=== PATIENT | female | born 1955 | race Caucasian/White ===

== ENCOUNTER 2021-07-11 10:33 | Emergency (ER) | payer OTHER, SELFPAY ==
--- NOTE | ~2021-07-11 | XR_ITS ---
XR foot LT min 3V 07/11/2021 11:02 Indication: Left foot pain and swelling. Procedure: 4 views left foot Comparison: No prior studies for comparison. Findings: Osteopenia. No acute fracture, subluxation or dislocation. There are degenerative changes o f the first tarsal metatarsal and metatarsal-phalangeal joints. No focal soft tissue abnormality. The re are degenerative calcaneal enthesophytes at the plantar surface. Impression: 1: Mild polyarticular osteoarthritis. Reviewed, dictated and finalized at location A. Impression: 1: Mild polyarticular osteoarthritis.
[2021-07-11 10:48] VITALS: BP 114/60; PULSE 65; RESP 16; TEMP 36.2; O2SAT 100
--- NOTE | 2021-07-11 11:12 | ED.EXTPRO ---
HPI - Extremity Problem General Chief complaint: Extremity Problem,Nontraumatic Stated complaint: Lt Foot Swelling and Pain Time Seen by Provider: 07/11/21 11:12 History of Present Illness HPI Narrative: Chelle Lebron is a 66 yo female with no PMH who comes with mild erythema at the base of metatarsals 2 3 and 4 for the last 9 days. She is worn a pair of sandals 1 day but otherwise wears the same pair of tennis shoes with [id number] orthotics. Has tried diflonac cream to foot, ice, elevation, Related Data Home Medications Medication Instructions Recorded Confirmed calcium carbonate 600 mg calcium 1 tablet PO DAILY 07/11/21 07/11/21 (1,500 mg) tablet (Calcium) levothyroxine 75 mcg tablet 1 tablet PO DAILY 07/11/21 07/11/21 (Synthroid) Allergies Allergy/AdvReac Type Severity Reaction Status Date / Time erythromycin base AdvReac Mild Hives Verified 07/11/21 11:04 Penicillins AdvReac Mild Hives Verified 07/11/21 10:57 pseudoephedrine AdvReac Mild Hives Verified 07/11/21 10:57 [From [facility]] Review of Systems Review of Systems: CONSTITUTIONAL: Denies fever, chills, sweats. EYES: Denies visual changes, redness, discharge. ENT: Denies rhinorrhea, congestion, sore throat, otalgia. CARDIOVASCULAR: Denies chest pain, palpitations, edema. RESPIRATORY: Denies dyspnea, wheezing, cough GASTROINTESTINAL: Denies abdominal pain, nausea, vomiting, diarrhea. GENITOURINARY: Denies dysuria, hematuria, abnormal discharge SKIN: Denies rash or itching. NEUROLOGIC: Denies numbness, or focal weakness. PSYCHIATRIC: Denies anxiety or depression. Left foot mild edema at base of toes 2 3 and 4, tender on top, not on bottom PMFSH Social History Social History (Updated 07/11/21 @ 11:25 by Elizabeth Escobar CNP) Smoking status: Never smoker Exam Narrative: At time of signature, I agree with nursing past medical, surgical, social and family history. There is no relevant family history pertinent to the presenting complaint. GENERAL: This is a well-nourished, well-developed patient, in mild distress. HEAD: normocephalic, atraumatic. EYES: Sclera clear/white. Vision is grossly intact. EARS: External ears normal, . Hearing grossly intact. NOSE: External nose normal without nasal discharge, nares without redness, no rhinorrhea. THROAT: Mucous membranes moist, NECK: Neck supple, non-tender CARDIOVASCULAR: Regular rate and rhythm without murmurs, gallops, or rubs. RESPIRATORY: Clear to auscultation. Breath sounds equal bilaterally. No wheezes, rales, or rhonchi. GASTROINTESTINAL: Abdomen soft, SKIN: warm, intact with no suspicious lesions or rash, good texture and turgor. NEURO: awake, alert, and oriented to person, place and time. There were no obvious focal neurologic abnormalities. Steady gait EXTREMITIES: Normal range of motion. Left foot mild swelling with tenderness, no erythema No induration BACK: Nontender without deformity Course Course Emergency Course: Patient comes in left foot pain and mild swelling at the base of toes 2 3 and 4 no erythema or induration X-ray shows mild polyarticular osteoarthritis, osteopenia, no fracture subluxation or dislocation no soft tissue abnormality Patient asked to change shoes, placed in Mino wrap to take Tylenol arthritis for pain Level of Care: Express Care Visit Vital Signs Vital signs: Vital Signs Temperature 97.2 F L 07/11/21 10:48 Pulse Rate 65 07/11/21 10:48 Respiratory Rate 16 07/11/21 10:48 Blood Pressure 114/60 07/11/21 10:48 Pulse Oximetry 100 07/11/21 10:48 Oxygen Delivery Room Air 07/11/21 10:48 Temperature 97.2 F L 07/11/21 10:48 Pulse Rate 65 07/11/21 10:48 Respiratory Rate 16 07/11/21 10:48 Blood Pressure 114/60 07/11/21 10:48 Pulse Oximetry 100 07/11/21 10:48 Oxygen Delivery Room Air 07/11/21 10:48 MDM - Extremity (Nontraumatic) MDM Narrative Medical decision making narrative: Fracture versus infection versus
== END 2021-07-11 11:36 | disposition home or self-care (01) ==
PROVIDERS: Emergency Provider Nurse Practitioner
DX: S93.602A Unspecified sprain of left foot, initial encounter (principal); T14.90XA Injury, unspecified, initial encounter; E03.9 Hypothyroidism, unspecified
CPT/HCPCS: 73630; 99203; G0463

== ENCOUNTER 2022-06-04 18:02 | Emergency (ER) | payer MEDICARE, OTHER, SELFPAY ==
[2022-06-04 18:25] VITALS: BP 129/68; PULSE 73; RESP 16; TEMP 37.1; O2SAT 97
--- NOTE | 2022-06-04 18:34 | ED.EYEPROB ---
HPI - Eye Problem General Chief complaint: Eye Problems Stated complaint: bilateral eye irritation Time Seen by Provider: 06/04/22 18:34 Source: patient Mode of arrival: ambulatory Limitations: no limitations History of Present Illness HPI Narrative: 67-year-old female presents with complaint of bilateral eye photosensitivity, irritation, redness, itching for the past week. States she initially thought that symptoms were allergy related. Is taking Zyrtec Daily. Not tried an [id number] allergy eye drop due to previous subconjunctival hemorrhage from [place]. Denies vision change. Does not were contacts. States that at night she has been laying a cold washcloth over her eyes and at times does rub at her eyes. Light sensitivity to bilateral eyes started over the last 2-3 days. All systems reviewed and negative except as above. Related Data Home Medications Medication Instructions Recorded Confirmed calcium carbonate 600 mg calcium 1 tablet PO DAILY 07/11/21 06/04/22 (1,500 mg) tablet (Calcium) levothyroxine 75 mcg tablet 1 tablet PO DAILY 07/11/21 06/04/22 (Synthroid) carboxymethylcellulose sodium 0.5 2 drp EACH EYE DAILY 06/04/22 06/04/22 % eye drops (Refresh Tears) cetirizine 10 mg tablet (Zyrtec) 10 mg PO DAILY 06/04/22 06/04/22 cholecalciferol (vitamin D3) 25 1,000 unit PO DAILY 06/04/22 06/04/22 mcg (1,000 unit) tablet (Vitamin D3) Allergies Allergy/AdvReac Type Severity Reaction Status Date / Time erythromycin base AdvReac Mild Hives Verified 06/04/22 18:25 Penicillins AdvReac Mild Hives Verified 06/04/22 18:25 pseudoephedrine AdvReac Mild Hives Verified 06/04/22 18:25 [From [facility]] Review of Systems Review of Systems: CONSTITUTIONAL: Denies fever, chills, or sweats. EYES: Denies visual changes . Reports redness, light sensitivity. Denies discharge. ENT: Denies rhinorrhea, congestion, sore throat, or otalgia. CARDIOVASCULAR: Denies chest pain, palpitations, or edema. RESPIRATORY: Denies cough or dyspnea. GASTROINTESTINAL: Denies abdominal pain, nausea, vomiting, or diarrhea. GENITOURINARY: Denies dysuria or hematuria. SKIN: Denies rash or itching. MUSCULOSKELETAL: Denies back pain, joint pain, or myalgia. NEUROLOGIC: Denies headache, numbness, or weakness. PSYCHIATRIC: Denies anxiety or depression. All other systems reviewed are negative, except as documented in HPI. [facility] Social History Social History (Updated 07/11/21 @ 11:25 by Elizabeth Escobar, BUSINESS [employer]IT LEADER) Smoking status: Never smoker Comments At time of signature, agree with nursing past medical, surgical, social and family history. There is no relevant family history pertinent to the presenting complaint. Exam Narrative: GENERAL: This is a well-nourished, well-developed patient, in no apparent distress. HEAD: normocephalic, atraumatic. EYES: PERRL. Sclera clear/white. Vision is grossly intact. Topical anesthetic was instilled with good anesthesia using 1gtt of opth anesthetic agent (tetracaine). Fluorescein stain of the R/L eye was performed. multiple Small corneal abrasions noted bilaterally. NO FB Noted. Upper lid was everted and no FB or lesions were noted. Normal saline irrigation eye solution was performed and the patient tolerated the procedure well, no adverse reaction or complications. EARS: External ears normal NOSE: External nose normal NECK: Neck supple, non-tender without lymphadenopathy, masses or thyromegaly. CARDIOVASCULAR: Regular rate and rhythm without murmurs, gallops, or rubs. RESPIRATORY: Clear to auscultation. Breath sounds equal bilaterally. No wheezes, rales, or rhonchi. SKIN: warm, Dry, intact with no suspicious lesions or rash, good texture and turgor. NEURO: awake, alert, and oriented to person, place and time. There were no obvious focal neurologic abnormalities. EXTREMITIES: No joint tenderness, effusion, or edema noted. Course Course Level of Care: Express Care Visit Vital
== END 2022-06-04 19:06 | disposition home or self-care (01) ==
PROVIDERS: Emergency Provider Nurse Practitioner Family
DX: S05.02XA Injury of conjunctiva and corneal abrasion without foreign body, left eye, initial encounter (principal); S05.01XA Injury of conjunctiva and corneal abrasion without foreign body, right eye, initial encounter; X58.XXXA Exposure to other specified factors, initial encounter; E89.0 Postprocedural hypothyroidism
CPT/HCPCS: 99213; G0463